=== PATIENT | female | born 1960 | race Caucasian/White ===

== ENCOUNTER 2020-08-17 05:56 | Day surgery (SDC) | payer MEDICARE, SELFPAY ==
[2020-08-17] VITALS (7 sets, daily range): BP systolic 122–161; BP diastolic 66–93; PULSE 64–76; RESP 16; TEMP 36.2–36.7; O2SAT 93–98; BMI 23.8
[2020-08-17] MEDS: Lactated Ringers 1,000 ML 100 ML IV ×2 (06:32→10:00)
--- NOTE | 2020-08-17 07:30 | RAD_ITS ---
STUDY: X-RAY - RIGHT ANKLE REASON FOR EXAM: Female, 60 years old. PILON ORIF, FIBULA ORIF TECHNIQUE: 2 view(s) of the ankle. COMPARISON: None. FINDINGS: 207 seconds of fluoroscopy of the right ankle was utilized and operating room during open reduction internal fixation and 24 images are submitted for interpretation.. RAD/Ankle 2 Views IMPRESSION: Fluoroscopy during open reduction internal fixation. Electronically Signed: Jan Manjarrez MD at 9:47 EDT Tel , Service support ,
[2020-08-17] MEDS: Cefazolin 2 GM in 0.9% Normal Saline 100 ML IV (07:46)
--- NOTE | 2020-08-17 10:28 | RAD_ITS ---
STUDY: X-RAY - RIGHT ANKLE REASON FOR EXAM: Status post ORIF of right ankle fracture. TECHNIQUE: 3 view(s) of the ankle. COMPARISON: Intraoperative images obtained the same day. FINDINGS: There is an orthopedic plate and screws transfixing a distal fibular fracture in anatomical alignment and position. There are 3 orthopedic screws transfixing a distal tibial fracture in anatomical alignment and position. Normal tibiotalar articulation and ankle mortise. Normal visualized talus and calcaneus. The visualized subtalar, talonavicular, calcaneocuboid and tarsal articulations are normal. There are skin wojciech and overlying cast. There is prior orthopedic hardware in the forefoot. RAD/Ankle min 3 Views IMPRESSION: ORIF with anatomical alignment and position of distal fibular and distal tibial fractures. Electronically Signed: Chucky An MD at 11:33 EDT Tel , Service support ,
--- NOTE | 2020-08-17 10:33 | DCINST_ITS ---
Discharge Instructions Diet Discharge Diet: Light diet - advance as tolerated Activity Discharge Activity: May Not Drive, May Not Shower, Use Walker and Use Crutches Weight Bearing Status: Weight bearing as tolerated and No weight bearing Keep extremity elevated above heart level: Right Leg Additional Activity Instructions:: 1. Keep the dressing to right leg clean, dry, intact. Do not get dressing wet. Do not remove dressing. If get dressing wet, call office immediately for further instruction. 2. Ice around right knee 30 minutes every hour while awake as needed for pain. 4. Elevate right foot above level of heart as often as possible. Foot should only be down to use the restroom. 5. Do not place any weight on right foot. No walking/standing on right foot. Use crutches/walker/knee scooter for assistance. 6. Begin taking [place] (pain medication) today, August 17, 2020 as needed. You may supplement this pain medication with extra strength Tylenol (acetaminophen). [place] does contain acetaminophen. Do not exceed 3000 mg of acetaminophen in a 24-hour period. 7. Begin taking doxycycline (antibiotic) tomorrow, August 18, 2020, 1 pill twice a day as instructed on bottle. 8. Resume aspirin 81 mg starting tomorrow, August 18, 2020. This will be 1 pill twice a day. 9. Follow-up with Dr. Goncalves and previously scheduled appointment. Dressing / Incision Call your doctor if your incision/area has: Continuous Slow Oozing, Sudden Increased Bleeding and Increased Pain/ Swelling Call your doctor if you observe: Fever of 101 or Higher, Coldness, Increased Pain, Shortness of breath, Chest pain, Calf discomfort and Uncontrolled pain Change Dressing in: do not change dressing Cleanse incision/area with: Do not get Incision Wet and Keep Dressing Clean & Dry Discharge Plan Admission Attending Provider: Mikhail Goncalves Primary Care Provider: Care Physician,Stacia Primary Discharge Orders/Prescriptions Prescriptions: No Action hydrocodone-acetaminophen 1 TABLET tablet 1 tab PO Q4H PRN PRN (Reason: Pain) Qty: 12 RF: 0 multivitamin Tablet 1 tab PO DAILY RF: 0 amlodipine 5 mg Tablet 5 mg PO DAILY RF: 0 loratadine [Claritin] 10 mg Tablet 10 mg PO DAILY RF: 0 cholecalciferol (vitamin D3) [Vitamin D3] 50 mcg (2,000 unit) Tablet 50 mcg PO DAILY RF: 0 Disposition Discharge Orders: Discharge Patient (Routine); Ordered 08/17/20 Ordered By: Dr. Mikhail Goncalves
--- NOTE | 2020-08-17 10:40 | OP.PCM_ITS ---
Problems Associated Problem List Diagnoses (1) Pilon fracture of right tibia: (2) Fracture of lateral malleolus of right ankle: (3) Dislocation of right ankle joint: Report of Operation Date of Procedure: 08/17/20 Pre-Operative Diagnosis: 1. Right ankle pilon fracture. 2. Right fibular fracture. 3. Right ankle joint dislocation Post-Operative Diagnosis: 1. Right ankle pilon fracture. 2. Right fibular fracture. 3. Right ankle joint dislocation Surgery/Procedure Performed:: 1. Right pilon open reduction with internal fixation. 2. Right fibula open reduction with internal fixation. 3. Right ankle joint reduction Surgeon: Mikhail Goncalves wet silk hanger: Melinda Frederick Type of Anesthesia: General/Regional (With a popliteal and adductor canal block given to the right lower extremity preoperatively) Anesthesiologist: Bo Campa Special Medications: 2 grams of ancef given preoperatively for antibiotic prophylaxis Specimen's removed: None Drains: None Estimated Blood Loss (mL): 20mL Description of Procedure: Hemostasis: Pneumatic thigh tourniquet placed at the level of the right thigh at 275 mmHg for 41 minutes, deflated for a period of 20 minutes, and reinflated at 275 mmHg for a period of 39 minutes Materials: #1. Arthrex 8 hole straight locking plate. 2. Arthrex 3.5 x 12 mm cortical screw x2. 3. Arthrex 3.5 x 14 mm cortical screw. 4. Arthrex 3.5 x 35 mm cortical screw. 5. Arthrex 3.5 x 12 mm crew lock screw. 6. Arthrex 3.5 x 14 mm clock screw x2. 7. Arthrex 4.0 x 30 mm long threaded cancellous screw. 8. Arthrex 4.0 x 35 mm long threaded cancellous screw. 9. Size 0 Vicryl. 10. Size 2-0 Vicryl. 11. Size 3-0 Vicryl. 12. Skin wojciech Condition: Stable Indications: Patient is a 60-year-old female who has multiple medical problems including history of smoking who suffered a fall and injury to her right ankle on July 31, 2020. Unfortunately, at that time, patient lost her balance and twisted her right ankle. Patient continued to bear weight on her right ankle after the injury because she thought it was a sprain . She noticed increased pain while ambulating. This prompted her to go to the emergency department on August 01, 2020. At that time, x-rays were taken, revealing a right ankle fracture. Patient was then placed in a posterior splint, and was instructed to remain nonweightbearing. I initially saw the patient on Friday, August 02, 2020. At that time, significant edema was present along with fracture blisters on the ankle. I discussed her imaging with her at that time. Due to the significance of the injury, a CT scan was ordered of her right ankle. Patient was placed in a compressive dressing and was instructed to elevate and remain nonweightbearing. Patient followed up in 1 week to go over the CT scan results. At that time, CT scan revealed a Pilon fracture of her right ankle along with a comminuted fibular fracture. I discussed her current clinical condition at that time. I discussed the significance of her injury. I discussed conservative versus surgical intervention, and the risks and benefits to both. The surgical intervention would include open reduction with internal fixation of the Pilon fracture and the fibular fracture. The risks of surgery include but not limited to delayed or nonhealing wounds, delayed or nonhealing bone, DVT, infection, decreased function of limb, continued pain, damage to surrounding structures, loss of limb, loss of life. Since the patient is a smoker, she is at high risk of postoperative complications. All the patient questions were answered to her satisfaction and all of her concerns were addressed. No guarantees were made as to the outcome of the procedure. Patient understood all aspects of the procedure. Due to the injury that was present and her active lifestyle, I recommended surgical intervention. Patient states that she was willing to accept the risks of surgery, and agreed to proceed with surgical intervention. Another compressive dressing was placed at that time to continue the reduction of the swelling and healing of the fracture blisters. Patient then saw me once again yesterday, August 16, 2020. Significant reduction of edema was noted and healing of the fracture blisters was present. Due to this, surgery was planned for today, August 17, 2020. Operative report: Before the patient was brought to the operating room, the risks, benefits, possible outcomes, possible complications of the procedure were discussed with the patient once again. All the patient questions were answered to her satisfaction and all of her concerns were addressed. No guarantees were made to the outcome of the procedure. Patient understood all aspects of the procedure, and was agreeable to proceed with the surgical intervention. Consent was then signed by the patient. Before the patient was brought to the operating room, the anesthesiologist administered a popliteal and adductor canal block to the right lower extremity. Patient was then brought to the operating room placed on the operating table in supine position. After a timeout, once general anesthesia was obtained and anesthesia to control the airway, 2 g of Ancef was given preoperatively. Next, a well-padded pneumatic thigh tourniquet was placed at the level of the right thigh. The right foot, ankle, leg were then scrubbed, prepped, draped in the usual sterile manner. Attention was then directed lateral aspect of the right ankle in the area of the lateral malleolus. At this time, radiograph evaluation was used to determine the level of the fibular fracture, and distal tip of the lateral malleolus. These were then marked on the patient. Next, elevation of the right lower extremity was followed by exsanguination via Esmarch and inflation of pneumatic thigh tourniquet to 275 mmHg. Attention was then directed back to the lateral aspect of the ankle. At this time, a #15 blade was used to perform a linear longitudinal incision starting on the lateral aspect of the distal one third of the fibular shaft extending distally to the distal tip of the lateral malleolus. This incision was deepened utilizing sharp and blunt dissection. Care was taken retract all vital neural and vascular structures. All bleeders were cauterized and ligated as necessary. Next, a linear periosteal incision was made in line with the original skin incision. The periosteal and capsular structures were reflected anteriorly and posteriorly, thus exposing the fibular fractures at the operative site. At this time, the fibular fractures were identified and significant comminution was noted. Due to this, an interfragmentary screw would not be able to hold all the fracture pieces together. It was determined that reduction would be performed and the fracture will be held with a plate. Furthermore, her bone was soft, and I believe that and interfragmentary screw would not hold. A curette was used to remove any fibrous and hematoma formation. The surgical site was th en irrigated with copious amounts of normal sterile saline. At this time, temporary reduction was performed and the fractures were held via temporary fixation. Radiograph evaluation was then performed. The fracture was noted to be reduced when compared to preoperative assessment. Furthermore, the fibula was noted to be back out to length. At this time, the Arthrex 8 hole locking straight plate was placed over the lateral aspect of the fibula and held via temporary fixation. Radiograph evaluation was then performed to determine adequate positioning of the plate. Once adequate positioning was had, this plate was held to the lateral aspect of the fibula via a mixture of cortical and krewlock screws. Of note during insertion of the screws was the adequate compression of the plate to the bone. Furthermore, no shifting of the fractures occurred during insertion of the screws. Once the screws were fully inserted, all temporary fixation was then removed. Radiograph evaluation was then performed. The fibular fracture was noted to be reduced when compared to preoperative assessment and when held in reduced form with the internal fixation. Furthermore, the fibula was noted to be out the length at this time. The pneumatic thigh tourniquet was then released and a prompt hyperemic response was noted to the entirety of the right lower extremity. Next, the cotton and hook test were performed to assess the syndesmosis. The syndesmosis was deemed stable at this time. The surgical site was then irrigated with copious amounts of irrisept and normal sterile saline. The periosteal and capsular structures were reapproximated coapted utilizing size 0 Vicryl. The subcutaneous tissues were reapproximated and coapted utilizing size 0 Vicryl, 2-0 Vicryl, and 3-0 Vicryl. The skin was reapproximated and coapted utilizing skin wojciech. Attention was then directed to the medial aspect of the right ankle. At this time, radiograph evaluation was used to determine the level of the pilon fracture, and the distal tip of the medial malleolus. Next, elevation of the right lower extremity was followed by exsanguination via Esmarch and inflation pneumatic thigh tourniquet to 275 mmHg. Attention was then directed back to the medial aspect of the medial malleolus. At this time, a #15 blade was used to perform a linear longitudinal incision starting at the level of the medial malleolus fracture extending distally to the distal aspect of the medial malleolus. This incision was approximately 4 cm in length. This incision was deepened utilizing sharp and blunt dissection. Care was taken to retract all vital neural and vascular structures. All bleeders were cauterized and ligated as necessary. Next, a linear periosteal incision was made in line with the original skin incision. The periosteal and capsular structures were then reflected anteriorly and posteriorly, thus exposing the pilon and tibial fracture at the operative site. Next, a curette was used to remove any fibrous tissue contained within the fracture. The surgical site was irrigated with copious amounts normal sterile saline. Next, reduction of the fracture was performed and held via temporary fi xation. Radiograph evaluation was then performed. The tibia fracture was noted to be reduced when compared to preoperative assessment. The ankle joint mortise was noted to be intact at this time. At this time, the Arthrex 3.5 cortical and 4.o threaded cancellous screws were placed from medial to lateral to hold the fracture in the correct the reduced position. Care was taken to make sure that these screws were in different planes from each other to aid in stability. Of note during insertion of the screws was the adequate compression of the fracture fragments. Furthermore, no shifting of the fracture occurred during insertion of the screws. Once all screws were fully inserted, all temporary fixation was then removed. Radiograph evaluation was then performed. The tibia fracture was noted to be reduced when compared to preoperative assessment. The ankle joint mortise was noted to be intact at this time. At this time, live radiograph evaluation was used to assess the posterior ma lleolus. The posterior malleolus was noted to be reduced when compared to preoperative assessment and back in anatomical alignment. Furthermore, the posterior malleolus fracture was noted to be less than 25% of the articulating surface. At this time, it was determined that the posterior malleolus fracture did not need internal fixation. The ankle joint mortise was noted to be intact at this time. The hardware contained within the ankle was noted to be neither too long or too short and was noted to hold the lateral malleolus and tibial fractures in the corrected reduced position. Reduction of the fractures has been achieved. The medial surgical site was then irrigated with copious amounts of irrisept and normal sterile saline. The pneumatic thigh tourniquet was then released and a p rompt hyperemic response noted to the entire the right lower extremity. The subcutaneous tissues were reapproximated and coapted using size 0 Vicryl and 2-0 Vicryl. The skin was reapproximated and coapted utilizing skin wojciech. Neurovascular status was assessed at the end of the application and deemed intact of the right lower extremity. At this time, each surgical site was then dressed with Betadine soaked gauze, and a dry sterile dressing consisting of 4 x 4 gauze, ABD pads, wrapped with Kerlix. The right foot and ankle were then wrapped in Norris bandage. Next, a stockinette was placed over the right lower extremity. Cast padding was wrapped from the metatarsal heads extending proximally to level just distal to the tibial tuberosity. A posterior splint was fashioned to the right lower extremity and was adhered to the right lower extremity utilizing Norris bandages. Care was taken make sure that the foot and ankle held in neutral position as the posterior splint dried. Neurovascular status was assessed at the end of the application and deemed intact the right lower extremity. The patient tolerated the anesthesia the procedure well and was transported to the PACU with vital signs stable and neurovascular status intact to the right lower extremity. After period of postoperative monitoring, patient be discharged home with written and oral instructions for wound care and follow-up. The surgical garment assembly supervisor, the physician medical assistant per diem, was utilized at the entire procedure. She helped with patient positioning, holding of limb, holding retractors. She helped with exposure throughout. She helped with bandage application, and cast application. Without the surgical garment assembly supervisor, surgical time would have been increased and surgical outcome could have been less optimal. Complications Reduction of fracture is difficult due to significance of injury. Furthermore, her bone appeared soft and surrounding soft tissues were difficult to close as well. Her bones appeared osteopenic and could be from her smoking history Admit VTE Documentation VTE Present on Admission: No (Patient will begin aspirin 81 mg BID starting 08/18/20 for DVT prophylaxis) VTE Mechan Device Prophylaxis: SCD's VTE Pharm Prophylaxis ordered?: Yes
[2020-08-17] MEDS: HYDROcodone Bitartrate/Apap 5/325 Tablet PO (12:07)
== END 2020-08-17 12:28 | disposition home or self-care (01) ==
LOC: SDC 05:58 → AC 05:59
PROVIDERS: Referring Provider Podiatrist Foot & Ankle Surgery; Visit Provider Podiatrist Foot & Ankle Surgery
PROC: (CPT 27792; principal; 2020-08-17 07:10)
DX: S82.871A Displaced pilon fracture of right tibia, initial encounter for closed fracture (principal); X50.1XXA Overexertion from prolonged static or awkward postures, initial encounter; F17.210 Nicotine dependence, cigarettes, uncomplicated; I10 Essential (primary) hypertension
CPT/HCPCS: 27792; 64445; 73600; 73610; 76000; 87426; C1713; C9803; J7120; J2405